=== PATIENT | female | born 1965 | race Caucasian/White ===

== ENCOUNTER → 2023-06-08 10:54 | Outpatient (REF) | payer OTHER, SELFPAY | LOC: RAD 10:54 | PROVIDERS: ATTENDING PHYSICIAN Internal Medicine; FAMILY PHYSICIAN Nurse Practitioner Adult Health | DX: M25.511 Pain in right shoulder (principal); M25.819 Other specified joint disorders, unspecified shoulder | CPT/HCPCS: 73030 ==

== ENCOUNTER → 2023-07-24 17:45 | Outpatient (REF) | payer OTHER, SELFPAY | LOC: HWWDC 17:45 | PROVIDERS: ATTENDING PHYSICIAN Nurse Practitioner Adult Health | DX: Z12.31 Encounter for screening mammogram for malignant neoplasm of breast (principal) | CPT/HCPCS: 77063; 77067 ==

== ENCOUNTER → 2024-09-11 06:22 | Outpatient (REF) | payer OTHER, SELFPAY | LOC: HWWDC 06:22 | PROVIDERS: ATTENDING PHYSICIAN Nurse Practitioner Adult Health | DX: Z12.31 Encounter for screening mammogram for malignant neoplasm of breast (principal) | CPT/HCPCS: 77063; 77067 ==